=== PATIENT | female | born 1965 | race Native Hawaiian/Other Pacific Islander ===

== ENCOUNTER 2017-01-12 12:40 | Outpatient (CLI) | payer OTHER ==
[~2017-01-12 12:40] MED LIST: DULO60CA2 PO; HYDR25TA60 PO; LISITAB PO; NEURONTIN800 MG PO; PANT40TA PO; PRAVACHOL20 MG PO; ROBAXIN-750750 MG PO; SAVELLA50 MG PO; SENNA-S1 TAB PO; TRAZ50TA36 PO
== END 2017-01-12 19:04 | disposition home or self-care (01) ==
LOC: MAMMO 12:40
DX: Z12.31 Encounter for screening mammogram for malignant neoplasm of breast (principal)
CPT/HCPCS: G0202-TC

== ENCOUNTER 2017-01-23 14:45 | Emergency (ER) | payer OTHER ==
[~2017-01-23] VITALS: Ht 160 cm; Wt 100.2 kg
[2017-01-23 15:34] VITALS: BP 131/74; TEMP 98
== END 2017-01-23 15:35 | disposition home or self-care (01) ==
LOC: ED 14:45
DX: S90.32XA Contusion of left foot, initial encounter (principal); W22.09XA Striking against other stationary object, initial encounter; Y93.89 Activity, other specified; Y92.018 Other place in single-family (private) house as the place of occurrence of the external cause; Y99.8 Other external cause status
CPT/HCPCS: 99282

== ENCOUNTER 2017-04-21 19:18 | Emergency (ER) | payer OTHER ==
[~2017-04-21] VITALS: Ht 160 cm; Wt 103.4 kg
[2017-04-21] MEDS ORDERED: SAVELLA100 MG PO (19:31)
[2017-04-21] MEDS ORDERED: GABA300C2 PO (19:31)
[2017-04-21] MEDS ORDERED: KLOR-CON M1010 MEQ PO (19:32)
[2017-04-21] MEDS ORDERED: FAMOTIDINE40 MG PO (19:32)
[2017-04-21] MEDS ORDERED: TIZA4TAB5 PO (19:33)
[2017-04-21] MEDS ORDERED: HYDR10TA47 PO (19:34)
[2017-04-21 20:25] VITALS: BP 145/76; TEMP 98.5
== END 2017-04-21 20:30 | disposition home or self-care (01) ==
LOC: ED 19:18
DX: M79.1 Myalgia (principal)
CPT/HCPCS: 99282

== ENCOUNTER 2018-07-16 09:05 | Outpatient (CLI) | payer OTHER ==
[~2018-07-16 09:05] MED LIST changes: +FAMOTIDINE40 MG PO; +GABA300C2 PO; +HYDR10TA47 PO; +KLOR-CON M1010 MEQ PO; +SAVELLA100 MG PO; +TIZA4TAB5 PO
[2018-07-16 09:27] LABS: PLATELET COUNT 178 K/uL (152-353)
[2018-07-16 09:45] LABS: PARTIAL THROMBOPLASTIN TIME 26.3 SECONDS (24.5-33.6)
[2018-07-16 09:50] LABS: POTASSIUM 3.6 mmol/L (3.6-5.2)
== END 2018-07-16 19:27 | disposition home or self-care (01) ==
LOC: LABW 09:05
PROVIDERS: Nurse Practitioner Family
DX: I10 Essential (primary) hypertension (principal); F32.9 Major depressive disorder, single episode, unspecified; T85.192D Other mechanical complication of implanted electronic neurostimulator of spinal cord electrode (lead), subsequent encounter; Z51.81 Encounter for therapeutic drug level monitoring
CPT/HCPCS: 36415; 80053; 85027; 85610; 85730

== ENCOUNTER 2018-08-20 10:45 | Outpatient (CLI) | payer OTHER | END 2018-08-20 22:53 | disposition home or self-care (01) | LOC: LABW 10:45 | DX: Z01.812 Encounter for preprocedural laboratory examination (principal) | CPT/HCPCS: 85002 ==

== ENCOUNTER 2019-03-06 16:39 | Emergency (ER) | payer OTHER ==
[~2019-03-06] VITALS: Ht 160 cm; Wt 69.9 kg
[2019-03-06 16:52] VITALS: TEMP 98.4
[2019-03-06 19:43] VITALS: BP 128/72
== END 2019-03-06 19:44 | disposition home or self-care (01) ==
LOC: ED 16:39
DX: S09.8XXA Other specified injuries of head, initial encounter (principal); S16.1XXA Strain of muscle, fascia and tendon at neck level, initial encounter; S39.012A Strain of muscle, fascia and tendon of lower back, initial encounter; W10.8XXA Fall (on) (from) other stairs and steps, initial encounter; Y92.89 Other specified places as the place of occurrence of the external cause
CPT/HCPCS: 96372; 99283; J1885

== ENCOUNTER 2019-07-08 17:45 | Emergency (ER) | payer OTHER ==
[~2019-07-08] VITALS: Ht 160 cm; Wt 69.9 kg
[2019-07-08 20:10] VITALS: BP 138/72; TEMP 97.3
== END 2019-07-08 20:18 | disposition home or self-care (01) ==
LOC: ED 17:45
DX: T22.112A Burn of first degree of left forearm, initial encounter (principal); T31.0 Burns involving less than 10% of body surface; X10.1XXA Contact with hot food, initial encounter; Y92.89 Other specified places as the place of occurrence of the external cause
CPT/HCPCS: 96372; 99283; J1170; J1885

== ENCOUNTER 2019-11-10 16:36 | Observation (INO) | payer OTHER ==
[~2019-11-10] VITALS: Ht 165.1 cm; Wt 68.5 kg
[2019-11-10 16:50] VITALS: BP 120/84; TEMP 97
[2019-11-10 17:34] LABS: PLATELET COUNT 214 K/uL (152-353)
[2019-11-10 17:46] LABS: POTASSIUM 4.2 mmol/L (3.6-5.2); SODIUM 140 mmol/L (136-145)
[2019-11-10 20:40] VITALS: BP 99/56; TEMP 98.8; Ht 165.1 cm; Wt 68.5 kg
[2019-11-11 01:06] VITALS: BP 103/54; TEMP 98.7
[2019-11-11 03:53] VITALS: BP 111/67; TEMP 97.8
[2019-11-11 08:00] VITALS: BP 124/59; TEMP 99
[2019-11-11 12:25] VITALS: BP 135/55; TEMP 98.7
[2019-11-11] MEDS ORDERED: POTASSIUM CHLO20 ME1 PO (14:33)
[2019-11-11] MEDS ORDERED: TRAZODONE HYDR100 MG PO (14:34)
[2019-11-11] MEDS ORDERED: FLUOXETINE40 MG PO (14:35)
[2019-11-11] MEDS ORDERED: BUPROPION HYDR100 M2 PO (14:37)
[2019-11-11] MEDS ORDERED: NEXIUM40 MG PO (14:38)
[2019-11-11 16:15] VITALS: BP 125/56; TEMP 97.8
--- NOTE | 2019-11-11 18:23 | NUR ---
1814 PT IV DC'D TIP INTACT NO REDNESS OR SWELLING NOTED. PT TOLERATED WELL. 1819 PT GIVEN DISCHARGE INSTRUCITONS. PT GIVEN COPY OF ORDER FOR OUTPT ECHO AND INSTRUCTED TO COME TO HOSPITAL TOMORROW TO HAVE TEST DONE. PT INSTRUCTED TO FOLLOW UP WITH PCP. PT INFORMED WE WERE WORKING ON GETTING HER AN APPT WITH DR. NAIR AND SOMEONE WOULD CALL HER TOMORROW WITH THE APPT DATE AND TIME. PT INSTRUCTED TO CONTINUE ALL ROUTINE HOME MEDICATIONS. PT ALSO INSTRUCTED THAT IF CHEST PAIN, HEAVINESS, NAUSEA, CHEST DISCOMFORT, SHORTNESS OF BREATH OCCURED TO RETURN TO HOSPITAL OR CALL 911. PT VERBALIZED UNDERSTANDING. PT INSTRUCTED TO TAKE DISCHARGE PAPERWORK WITH HER TO HER FOLLOW UP APPT WITH DR. GUILLORY IN [place], [place]. PT AGAIN VERBALIZED UNDERSTANDING. PT REQUESTED TO AMBULATE OUT. PT AMBULATED OUT WITHOUT DIFFICULTY.
== END 2019-11-11 18:00 | disposition home or self-care (01) ==
LOC: ED 16:36 → MED/SURG 18:27
PROVIDERS: ADMIT Hospitalist
DX: R07.89 Other chest pain (principal); R06.02 Shortness of breath; K21.9 Gastro-esophageal reflux disease without esophagitis; I10 Essential (primary) hypertension; E78.49 Other hyperlipidemia; M79.7 Fibromyalgia; F41.8 Other specified anxiety disorders
CPT/HCPCS: 36415; 80053; 82550; 83880; 84484; 85027; 85379; 85610; 85730; 93005; 96360; 96375; 99220; 99284; G0378; J1885; J2405

== ENCOUNTER 2019-11-13 07:41 | Outpatient (CLI) | payer OTHER ==
[~2019-11-13 07:41] MED LIST changes: +BUPROPION HYDR100 M2 PO; +FLUOXETINE40 MG PO; +NEXIUM40 MG PO; +POTASSIUM CHLO20 ME1 PO; +TRAZODONE HYDR100 MG PO
== END 2019-11-13 22:26 | disposition home or self-care (01) ==
LOC: RESP 07:41 → RAD 07:41
DX: R93.1 Abnormal findings on diagnostic imaging of heart and coronary circulation (principal); R07.89 Other chest pain
CPT/HCPCS: 93306

== ENCOUNTER 2020-05-08 08:45 | Outpatient (CLI) | payer OTHER | END 2020-05-08 19:57 | disposition home or self-care (01) | LOC: MAMMO 08:45 | DX: Z12.31 Encounter for screening mammogram for malignant neoplasm of breast (principal) ==

== ENCOUNTER 2021-05-24 09:45 | Outpatient (CLI) | payer OTHER | END 2021-05-24 19:09 | disposition home or self-care (01) | LOC: CT 09:45 | PROVIDERS: ATTEND Nurse Practitioner | DX: M54.12 Radiculopathy, cervical region (principal) ==

== ENCOUNTER 2021-06-04 11:01 | Outpatient (CLI) | payer OTHER | END 2021-06-04 22:00 | disposition home or self-care (01) | LOC: MAMMO 11:01 | PROVIDERS: ATTEND Physician Assistant Medical | DX: Z12.31 Encounter for screening mammogram for malignant neoplasm of breast (principal) ==

== ENCOUNTER 2021-06-08 08:54 | Outpatient (CLI) | payer OTHER | END 2021-06-08 19:28 | disposition home or self-care (01) | LOC: CT 08:54 | PROVIDERS: ATTEND Physician Assistant | DX: R10.33 Periumbilical pain (principal) | CPT/HCPCS: 36415; 82565; 84520; Q9963 ==

== ENCOUNTER 2022-04-13 09:58 | Outpatient (CLI) | payer OTHER | END 2022-04-13 18:58 | disposition home or self-care (01) | LOC: CT 09:58 | PROVIDERS: ATTEND Pain Medicine Interventional Pain Medicine | DX: M54.17 Radiculopathy, lumbosacral region (principal) ==

== ENCOUNTER 2022-08-23 09:48 | Outpatient (CLI) | payer OTHER | END 2022-08-23 19:55 | disposition home or self-care (01) | LOC: MAMMO 09:48 | PROVIDERS: ATTEND Physician Assistant Medical | DX: Z12.31 Encounter for screening mammogram for malignant neoplasm of breast (principal) ==

== ENCOUNTER 2023-03-05 17:37 | Emergency (ER) | payer OTHER ==
[~2023-03-05] VITALS: Ht 165.1 cm; Wt 94.3 kg
[2023-03-05 17:40] VITALS: BP 182/94; TEMP 97.6
[2023-03-05 18:30] LABS: PLATELET COUNT 246 K/uL (152-353)
[2023-03-05 18:42] LABS: POTASSIUM 3.4 mmol/L (3.6-5.2)
[2023-03-05 19:19] LABS: PARTIAL THROMBOPLASTIN TIME 28.4 SECONDS (23.9-36.7)
== END 2023-03-05 20:51 | disposition home or self-care (01) ==
LOC: ED 17:37
PROVIDERS: Emergency Medicine
DX: F41.9 Anxiety disorder, unspecified (principal)
CPT/HCPCS: 36415; 36600; 80053; 80307; 81002; 82805; 83880; 84484; 85027; 85379; 85610; 85730; 93005; 96361; 96374; 96375; 99283; 99284; J2060; J2270; J2405

== ENCOUNTER 2023-03-13 07:53 | Outpatient (CLI) | payer OTHER | END 2023-03-13 19:19 | disposition home or self-care (01) | LOC: CT 07:53 | PROVIDERS: ATTEND Psychiatry & Neurology Neurology | DX: R42 Dizziness and giddiness (principal) | CPT/HCPCS: Q9963 ==